=== PATIENT | female | born 1935 | race Caucasian/White ===

== ENCOUNTER 2018-08-01 08:42 | Emergency (ER) | payer MEDICARE ==
[~2018-08-01] VITALS: Ht 157.5 cm; Wt 49.0 kg
[2018-08-01] MEDS ORDERED: LOSA25TA27 PO (08:51)
[2018-08-01] MEDS ORDERED: LEVO75TA PO (08:51)
--- NOTE | 2018-08-01 09:06 | NUR ---
Dr Gregory at the bedside for re-eval.
[2018-08-01 09:17] VITALS: BP 129/77
== END 2018-08-01 09:18 | disposition home or self-care (01) ==
LOC: ER 08:42
DX: R22.41 Localized swelling, mass and lump, right lower limb (principal); Z79.899 Other long term (current) drug therapy
CPT/HCPCS: A4663

== ENCOUNTER 2018-08-20 14:13 | Emergency (ER) | payer MEDICARE ==
[~2018-08-20] VITALS: Ht 154.9 cm; Wt 49.0 kg
[~2018-08-20 14:13] MED LIST: LEVO75TA PO; LOSA25TA27 PO
--- NOTE | 2018-08-20 14:29 | NUR ---
FORTINO MEYERS AT BEDSIDE FOR MSE.
[2018-08-20 14:44] LABS: BASOPHILS % (AUTO) 0.4 % (0.0-2.0); EOSINOPHILS % (AUTO) 0.5 % (0.0-7.0); HEMOGLOBIN 13.2 g/dL (10.9-14.3); MEAN CORPUSCULAR HEMOGLOBIN 30.7 uug (24.7-32.8); MEAN CORPUSCULAR HGB CONC 33 g/dL (32.3-35.6); MEAN CORPUSCULAR VOLUME 92.7 fL (75.5-95.3); MONOCYTES # (AUTO) 0.7 K/uL (2.0-10.0); MONOCYTES % (AUTO) 8.4 % (0.0-11.0); NEUTROPHILS # (AUTO) 6.2 K/uL (1.8-8.9); NEUTROPHILS % (AUTO) 77.7 % (38.5-71.5); PLATELET COUNT (AUTO) 257 K/uL (179-408); RED BLOOD CELL COUNT(AUTO) 4.31 MIL/uL (3.63-4.92)
[2018-08-20] MEDS: IV NORMAL SALINE 1000 ML BAG IV ONE (14:46)
[2018-08-20 14:52] LABS: CARBON DIOXIDE 28 mmol/L (21-32); CHLORIDE 103 mmol/L (98-107); CREATININE 0.8 mg/dL (0.6-1.3); GLUCOSE 125 mg/dL (74-106); POTASSIUM 3.6 mmol/L (3.5-5.1); UREA NITROGEN, BLOOD 13 mg/dL (7-18)
[2018-08-20 14:57] LABS: ALANINE AMINOTRANSFERASE 23 U/L (14-59); ALKALINE PHOSPHATASE 69 U/L (50-136); ASPARTATE AMINOTRANSFERASE 18 U/L (15-37); BILIRUBIN,DIRECT 0.1 mg/dL (0.0-0.2); BILIRUBIN,TOTAL 0.4 mg/dL (0.2-1.0); LIPASE 139 U/L (73-393); TOTAL PROTEIN, SERUM 7.2 g/dL (6.4-8.2)
--- NOTE | 2018-08-20 15:38 | NUR ---
Patient discharged to home in stable conditon. Written and verbal after care instructions given. Patient verbalizes understanding of instructions. ALL BELONGINGS W/ PT. PT SELF-AMBULATED W/O DIFFICULTY. 20G IV ACCESS IN LFA REMOVED PRIOR TO D/C - INNER CANNULA INTACT.
[2018-08-20 15:39] VITALS: BP 138/72
== END 2018-08-20 15:44 | disposition home or self-care (01) ==
LOC: ER 14:13
DX: R19.7 Diarrhea, unspecified (principal); R53.1 Weakness; Z79.899 Other long term (current) drug therapy
CPT/HCPCS: 36415; 83690; 85025; A4663; J7030

== ENCOUNTER 2018-09-14 10:07 | Emergency (ER) | payer MEDICARE ==
[~2018-09-14] VITALS: Ht 154.9 cm; Wt 49.4 kg
--- NOTE | 2018-09-14 10:22 | NUR ---
FORTINO MEYERS AT BEDSIDE FOR MSE.
[2018-09-14] MEDS ORDERED: SULFAMETH/TRIMETH 800/160 MG TABLET PO ONE (10:45)
[2018-09-14] MEDS ORDERED: SULFAMETH/TRIMETH 800/160 MG TABLET ONE (10:47)
[2018-09-14 10:52] VITALS: BP 131/71
--- NOTE | 2018-09-14 10:52 | NUR ---
Patient discharged to home in stable conditon. Written and verbal after care instructions given. Patient verbalizes understanding of instructions. ALL BELONGINGS W/ PT. PT SELF-AMBULATED W/O DIFFICULTY.
== END 2018-09-14 10:53 | disposition home or self-care (01) ==
LOC: ER 10:07
DX: S61.232A Puncture wound without foreign body of right middle finger without damage to nail, initial encounter (principal); L08.9 Local infection of the skin and subcutaneous tissue, unspecified; B95.8 Unspecified staphylococcus as the cause of diseases classified elsewhere; Z79.899 Other long term (current) drug therapy; W60.XXXA Contact with nonvenomous plant thorns and spines and sharp leaves, initial encounter; Y93.89 Activity, other specified; Y92.89 Other specified places as the place of occurrence of the external cause; Y99.8 Other external cause status
CPT/HCPCS: 73130; A4663

== ENCOUNTER 2018-09-17 17:40 | Emergency (ER) | payer MEDICARE ==
[~2018-09-17] VITALS: Ht 154.9 cm; Wt 49.4 kg
--- NOTE | 2018-09-17 18:50 | NUR ---
Patient discharged to home in stable conditon. Written and verbal after care instructions given. Patient verbalizes understanding of instructions.
[2018-09-17 18:51] VITALS: BP 144/73
== END 2018-09-17 18:52 | disposition home or self-care (01) ==
LOC: ER 17:42
DX: L81.9 Disorder of pigmentation, unspecified (principal); Z79.899 Other long term (current) drug therapy
CPT/HCPCS: A4663

== ENCOUNTER 2022-02-25 14:10 | Inpatient (IN) | payer MEDICARE ==
[~2022-02-25] VITALS: Ht 154.9 cm; Wt 49.4 kg
--- NOTE | 2022-02-25 14:28 | NUR ---
EKG done by KASH Lockett.
--- NOTE | 2022-02-25 14:35 | NUR ---
[email or web address], medical screening exam in progress
[2022-02-25] MEDS ORDERED: IV NORMAL SALINE 500 ML BAG IV ONE (15:00)
[2022-02-25] MEDS ORDERED: ACETAMINOPHEN ES 500 MG TABLET PO ONE (15:00)
[2022-02-25] MEDS ORDERED: ACETAMINOPHEN ES 500 MG TABLET ONE (15:07)
--- NOTE | 2022-02-25 15:23 | NUR ---
"Plan to admit" per Dr Taylor. Er registration/admitting staff Janine and Jazmine notified.
[2022-02-25 15:26] LABS: HEMATOCRIT 36.8 % (31.2-41.9); MEAN CORPUSCULAR HEMOGLOBIN 31.1 uug (24.7-32.8); MEAN CORPUSCULAR VOLUME 93.5 fL (75.5-95.3); PLATELET COUNT (AUTO) 258 K/uL (179-408)
--- NOTE | 2022-02-25 15:33 | NUR ---
Patient ambulated to the bathroom near the nurses' station with her own walker.
[2022-02-25 15:51] LABS: *BILIRUBIN,URIN NEGATIVE (NEGATIVE); *BLOOD, URINE NEGATIVE (NEGATIVE); *CLARITY,URINE CLEAR (CLEAR); *COLOR,URINE YELLOW (YELLOW); *KETONES,URINE NEGATIVE (NEGATIVE); *UROBILINOGEN,URINE 0.2 E.U./dl (NORMAL); LEUKOCYTE ESTERASE ,URINE NEGATIVE (NEGATIVE); NITRITE, URINE NEGATIVE (NEGATIVE); PH,URINE 7.5 (5.0-8.0); UGLUCOSE NEGATIVE (NEGATIVE)
[2022-02-25 15:56] LABS: ALANINE AMINOTRANSFERASE 21 U/L (14-59); ALKALINE PHOSPHATASE 67 U/L (50-136); ASPARTATE AMINOTRANSFERASE 11 U/L (15-37); BILIRUBIN,DIRECT 0.1 mg/dL (0.0-0.2); BILIRUBIN,TOTAL 0.3 mg/dL (0.2-1.0); CARBON DIOXIDE 26 mmol/L (21-32); CHLORIDE 102 mmol/L (98-107); CREATININE 0.6 mg/dL (0.6-1.3); GLUCOSE 115 mg/dL (74-106); POTASSIUM 3.5 mmol/L (3.5-5.1); TOTAL PROTEIN, SERUM 6.2 g/dL (6.4-8.2); UREA NITROGEN, BLOOD 18 mg/dL (7-18)
--- NOTE | 2022-02-25 17:15 | NUR ---
Patient is resting comfortably on gurney. Patient denies chest pains. Son is at bedside.
[2022-02-25] MEDS ORDERED: IV NS 1000 ML 1,000 ML IV PRN (18:30)
[2022-02-25] MEDS ORDERED: ACETAMINOPHEN 325 MG TABLET PO PRN (18:30)
[2022-02-25] MEDS ORDERED: ONDANSETRON 4 MG/2 ML VIAL IV PRN (18:30)
[2022-02-25] MEDS ORDERED: ENOXAPARIN SODIUM 40 MG/0.4 ML DISP.SYRIN SQ SCH ×2 (18:30→21:00)
[2022-02-25] MEDS ORDERED: ASPIRIN 81 MG TAB.CHEW PO ONE (18:30)
[2022-02-25] MEDS ORDERED: REMEDY ESSENTIAL ZINC PASTE 113 GM TP PRN (18:30)
--- NOTE | 2022-02-25 18:32 | NUR ---
Patient ate dinner tray with good appetite. Patient is still undecided if she wants to be admitted.
[2022-02-25] MEDS ORDERED: ENOXAPARIN SODIUM 40 MG/0.4 ML DISP.SYRIN SQ ONE (18:49)
--- NOTE | 2022-02-25 19:01 | NUR ---
Note lianna in EDM - 02/25/22 at 1932 by SONAM Patient refused subQ Lovenox. "I want to see the cardiologisy first." per patient's verbalization. ER MDs notified.
--- NOTE | 2022-02-25 19:01 | NUR ---
Patient refused subQ Lovenox. "I want to see the electrician sound first." per patient's verbalization. ER MDs notified.
--- NOTE | 2022-02-25 19:04 | NUR ---
Nursing SBAR given to KASH Spencer. Patient is waiting for an available telemetry nurse & bed in 3rd floor at this time.
--- NOTE | 2022-02-25 19:04 | NUR ---
Daly dsouza in ED - 02/25/22 at 1921 by SONAM Nursing SBAR given to KASH Spencer. Patient is waiting for an available telemetry nurse & bed in [address] [place] [address] at this time.
[2022-02-25] MEDS ORDERED: AZITHROMYCIN IV 500 MG in IV DEXTROSE 5% 250 ML IV SCH (21:00)
[2022-02-25] MEDS ORDERED: CEFTRIAXONE 1 G in IV DEXTROSE 5% 50 ML IV SCH (21:00)
--- NOTE | 2022-02-25 22:35 | NUR ---
Report given to Ishan HEWITT Tele.
[2022-02-25] MEDS ORDERED: HYDR-4075 PO (23:17)
[2022-02-25] MEDS ORDERED: AZITHROMYCIN 500MG/ D5W 250ML IVPB **ER PYXIS ONLY IV ONE (23:26)
[2022-02-25] MEDS ORDERED: CEFTRIAXONE /D5W 50ML IVPB **ER PYXIS IV ONE (23:26)
[2022-02-25] MEDS: LOSARTAN POTASSIUM 50 MG TABLET PO SCH (23:29)
[2022-02-26] MEDS ORDERED: LEVOTHYROXINE SODIUM 88 MCG TABLET PO SCH (07:00)
[2022-02-26] MEDS ORDERED: LEVOTHYROXINE SODIUM 75 MCG TABLET PO SCH (07:00)
[2022-02-26 07:28] LABS: HEMATOCRIT 33.8 % (31.2-41.9); MEAN CORPUSCULAR HEMOGLOBIN 31.5 uug (24.7-32.8); MEAN CORPUSCULAR VOLUME 92.3 fL (75.5-95.3); PLATELET COUNT (AUTO) 232 K/uL (179-408)
[2022-02-26 07:41] LABS: BILIRUBIN,TOTAL 0.4 mg/dL (0.2-1.0); CREATININE 0.6 mg/dL (0.6-1.3); PHOSPHOROUS 3.5 mg/dL (2.5-4.9); POTASSIUM 3.9 mmol/L (3.5-5.1); TOTAL PROTEIN, SERUM 5.9 g/dL (6.4-8.2)
--- NOTE | 2022-02-26 08:00 | NUR ---
awake alert and oriented x3 no ss of pain or distress, son at bedside. seen by dr lopez for cardiac follow-up see notes sr on monitor
[2022-02-26] MEDS: LOSARTAN POTASSIUM 50 MG TABLET PO SCH (08:58)
[2022-02-26] MEDS ORDERED: LOSARTAN POTASSIUM 25 MG TABLET PO SCH (09:00)
[2022-02-26] MEDS ORDERED: METOPROLOL TARTRATE 25 MG TABLET PO SCH (09:00)
--- NOTE | 2022-02-26 11:00 | NUR ---
seen by emre for follow-up see notes
[2022-02-26 12:00] VITALS: BP 105/63
[2022-02-26] MEDS ORDERED: AMOX-430 PO (13:13)
--- NOTE | 2022-02-26 15:20 | NUR ---
discharged home stable with son via private car. discharge medication and follow-up instruction given
== END 2022-02-26 15:25 | disposition home or self-care (01) | DRG 194 ==
LOC: ER 14:12 → TRANSITION 19:15 → TELE3 22:27
PROVIDERS: ADMIT Nurse Practitioner Acute Care; ATTEND Internal Medicine
DX: J15.9 Unspecified bacterial pneumonia (principal); E44.1 Mild protein-calorie malnutrition; I45.2 Bifascicular block; R07.9 Chest pain, unspecified; E03.9 Hypothyroidism, unspecified; E78.5 Hyperlipidemia, unspecified; E88.09 Other disorders of plasma-protein metabolism, not elsewhere classified; I10 Essential (primary) hypertension; Z86.12 Personal history of poliomyelitis; Z86.16 Personal history of COVID-19; R00.1 Bradycardia, unspecified; I35.1 Nonrheumatic aortic (valve) insufficiency; Z68.20 Body mass index [BMI] 20.0-20.9, adult
CPT/HCPCS: 36415; 70450; 71045; 83735; 84100; 84484; 85025; 85730; 87400; 93005; 93307; A4663; A9150; G0378; J0456; J0696; J1650; J7040; J7050

== ENCOUNTER 2022-11-01 15:09 | Emergency (ER) | payer MEDICARE ==
[~2022-11-01] VITALS: Ht 154.9 cm; Wt 52.2 kg
[~2022-11-01 15:09] MED LIST changes: +AMOX-430 PO; +HYDR-4075 PO
[2022-11-01 15:40] VITALS: O2SAT 95
== END 2022-11-01 16:01 | disposition home or self-care (01) ==
LOC: ER 15:12
DX: H11.31 Conjunctival hemorrhage, right eye (principal); E03.9 Hypothyroidism, unspecified; Z79.2 Long term (current) use of antibiotics; Z79.899 Other long term (current) drug therapy
CPT/HCPCS: A4663

== ENCOUNTER 2024-08-09 11:02 | Emergency (ER) | payer MEDICARE ==
[~2024-08-09] VITALS: Ht 157.5 cm; Wt 55.3 kg
[2024-08-09 12:22] LABS: BASOPHILS % (AUTO) 0.4 % (0.0-2.0); DIFFERENTIAL COMMENT 1; EOSINOPHILS % (AUTO) 0.5 % (0.0-7.0); HEMATOCRIT 38.6 % (31.2-41.9); HEMOGLOBIN 12.9 g/dL (10.9-14.3); LYMPHOCYTES # (AUTO) 0.8 K/uL (0.8-4.8); LYMPHOCYTES % (AUTO) 14.1 % (20.5-51.5); MEAN CORPUSCULAR HEMOGLOBIN 31.2 uug (24.7-32.8); MEAN CORPUSCULAR HGB CONC 33 g/dL (32.3-35.6); MEAN CORPUSCULAR VOLUME 93.4 fL (75.5-95.3); MONOCYTES # (AUTO) 0.7 K/uL (0.1-1.30); MONOCYTES % (AUTO) 11.6 % (0.0-11.0); NEUTROPHILS # (AUTO) 4.3 K/uL (1.8-8.9); NEUTROPHILS % (AUTO) 73.4 % (38.5-71.5); PLATELET COUNT (AUTO) 243 K/uL (179-408); RED BLOOD CELL COUNT(AUTO) 4.13 MIL/uL (3.63-4.92); RED CELL DISTRIBUTION WIDTH 14.2 % (12.3-17.7); WHITE BLOOD COUNT (AUTO) 5.9 K/uL (3.8-11.8)
[2024-08-09 12:27] LABS: CALCIUM 9.1 mg/dL (8.5-10.1); CARBON DIOXIDE 26 mmol/L (21-32); CHLORIDE 102 mmol/L (98-107); CREATININE 0.8 mg/dL (0.6-1.3); GLUCOSE 104 mg/dL (74-106); POTASSIUM 3.9 mmol/L (3.5-5.1); SODIUM SERUM 136 mmol/L (136-145); UREA NITROGEN, BLOOD 29 mg/dL (7-18)
[2024-08-09 14:38] VITALS: BP 139/93; TEMP 97.8; O2SAT 97
== END 2024-08-09 14:35 | disposition home or self-care (01) ==
LOC: ER 11:05
DX: M79.605 Pain in left leg (principal); E03.9 Hypothyroidism, unspecified; E78.5 Hyperlipidemia, unspecified; I10 Essential (primary) hypertension; Z86.16 Personal history of COVID-19; Z88.7 Allergy status to serum and vaccine; Z86.79 Personal history of other diseases of the circulatory system; Z87.39 Personal history of other diseases of the musculoskeletal system and connective tissue; Z87.2 Personal history of diseases of the skin and subcutaneous tissue
CPT/HCPCS: 36415; 85025; 85730; A4606; A4663

== ENCOUNTER 2024-08-30 10:20 | Inpatient (IN) | payer MEDICARE ==
[~2024-08-30] VITALS: Ht 157.5 cm; Wt 60.9 kg
[2024-08-30 11:02] LABS: PLATELET COUNT (AUTO) 247 K/uL (179-408); RED BLOOD CELL COUNT(AUTO) 4.17 MIL/uL (3.63-4.92); RED CELL DISTRIBUTION WIDTH 14.2 % (12.3-17.7); WHITE BLOOD COUNT (AUTO) 5.3 K/uL (3.8-11.8)
[2024-08-30 11:11] LABS: ETHANOL < 3 MG/DL (0-10)
[2024-08-30 11:35] LABS: LACTIC ACID 2.2 mmol/L (0.4-2.0)
[2024-08-30 11:38] LABS: CREATININE 1.0 mg/dL (0.6-1.3); SODIUM SERUM 141 mmol/L (136-145); UREA NITROGEN, BLOOD 27 mg/dL (7-18)
[2024-08-30 11:43] LABS: ASPARTATE AMINOTRANSFERASE 26 U/L (15-37); TOTAL PROTEIN, SERUM 7.3 g/dL (6.4-8.2)
[2024-08-30] MEDS ORDERED: CEFTRIAXONE /D5W 50ML IVPB **ER PYXIS IV ONE (12:01)
[2024-08-30] MEDS: IV NORMAL SALINE 1000 ML BAG IV ONE (12:05)
[2024-08-30] MEDS: CEFTRIAXONE 1 G in IV DEXTROSE 5% 50 ML IV ONE (12:05)
[2024-08-30 13:21] LABS: *BILIRUBIN,URIN NEGATIVE (NEGATIVE); *BLOOD, URINE NEGATIVE (NEGATIVE); *CLARITY,URINE CLEAR (CLEAR); *KETONES,URINE NEGATIVE (NEGATIVE); *PROTEIN,URINE NEGATIVE (NEGATIVE); *UROBILINOGEN,URINE 0.2 E.U./dl (NORMAL); LEUKOCYTE ESTERASE ,URINE NEGATIVE (NEGATIVE); NITRITE, URINE NEGATIVE (NEGATIVE); UGLUCOSE NEGATIVE (NEGATIVE)
[2024-08-30 13:23] LABS: *COLOR,URINE LIGHT YELLOW (YELLOW)
[2024-08-30] MEDS ORDERED: CALC-494 PO (13:31)
[2024-08-30] MEDS ORDERED: VIT1TABL66 PO (13:31)
[2024-08-30] MEDS ORDERED: FAMO10TA41 PO (13:31)
[2024-08-30] MEDS ORDERED: ROSU10TA2 PO (13:31)
[2024-08-30] MEDS ORDERED: CHOL100045 PO (13:31)
[2024-08-30 13:43] LABS: *AMPHETAMINE, URINE NEGATIVE (NEGATIVE); *BARBITURATE, URINE NEGATIVE (NEGATIVE); *BENZODIAZEPINE, URINE NEGATIVE (NEGATIVE); *CANNABINOID, URINE NEGATIVE (NEGATIVE); *COCCAINE, URINE NEGATIVE (NEGATIVE); *OPIATE, URINE NEGATIVE (NEGATIVE); *PHENCYCLIDINE SCREEN,URINE NEGATIVE (NEGATIVE); FENTANYL, URINE NEGATIVE (NEGATIVE)
[2024-08-30] MEDS ORDERED: CHOL-35 PO (13:54)
[2024-08-30 14:14] VITALS: BP_SYST 152; BP_SYST 162; BP_DIAS 53; BP_DIAS 70; TEMP 98.6; O2SAT 95
[2024-08-30] MEDS ORDERED: ONDANSETRON 4 MG/2 ML VIAL IV PRN (15:30)
[2024-08-30] MEDS ORDERED: TEMAZEPAM 15 MG CAPSULE PO PRN (15:30)
[2024-08-30] MEDS ORDERED: MAGNESIUM HYDROXIDE 30 ML LIQUID UDC PO PRN (15:30)
[2024-08-30 17:42] VITALS: BP 144/63
[2024-08-30] MEDS: CALCIUM CARBONATE 500 MG TABLET PO SCH (17:48)
[2024-08-30] MEDS: LOSARTAN POTASSIUM 25 MG TABLET PO SCH (17:49)
[2024-08-30 19:48] VITALS: BP 124/54; TEMP 98.5; O2SAT 95
[2024-08-30] MEDS: ATORVASTATIN 20 MG TABLET PO SCH (20:43)
[2024-08-30] MEDS: DOCUSATE SODIUM 100 MG CAPSULE PO SCH (20:44)
[2024-08-31] MEDS: ACETAMINOPHEN 325 MG TABLET PO PRN (00:54)
[2024-08-31 00:59] VITALS: BP 103/49; TEMP 98.1; O2SAT 93
[2024-08-31 05:14] VITALS: BP 102/45; TEMP 98.2; O2SAT 94
[2024-08-31] MEDS: LEVOTHYROXINE SODIUM 75 MCG TABLET PO SCH (06:07)
[2024-08-31] MEDS: PANTOPRAZOLE SODIUM 40 MG TABLET.DR PO SCH (06:07)
[2024-08-31 07:21] LABS: PLATELET COUNT (AUTO) 221 K/uL (179-408); RED BLOOD CELL COUNT(AUTO) 3.71 MIL/uL (3.63-4.92); RED CELL DISTRIBUTION WIDTH 14.0 % (12.3-17.7); WHITE BLOOD COUNT (AUTO) 5.7 K/uL (3.8-11.8)
[2024-08-31 07:36] VITALS: BP 105/52; TEMP 97.5; O2SAT 95
[2024-08-31 08:22] LABS: ASPARTATE AMINOTRANSFERASE 14 U/L (15-37); CREATININE 0.6 mg/dL (0.6-1.3); SODIUM SERUM 139 mmol/L (136-145); TOTAL PROTEIN, SERUM 5.5 g/dL (6.4-8.2); UREA NITROGEN, BLOOD 18 mg/dL (7-18)
[2024-08-31] MEDS: CHOLECALCIFEROL 1,000 UNIT TABLET PO SCH (08:41)
[2024-08-31] MEDS ORDERED: TEMAZEPAM 7.5 MG CAPSULE PO PRN (11:00)
[2024-08-31 11:36] VITALS: BP 112/49; TEMP 98.1; O2SAT 94
[2024-08-31 15:11] VITALS: BP 109/42; TEMP 98.4; O2SAT 94
[2024-08-31] MEDS: ENSURE WITH FIBER 237 ML LIQUID (CHOCOLATE) PO SCH (17:00)
[2024-08-31 19:00] VITALS: BP 121/48; TEMP 98.5; O2SAT 95
[2024-09-01 06:00] VITALS: BP 127/49; TEMP 98.7; O2SAT 95
[2024-09-01 09:30] VITALS: BP 129/60; O2SAT 97
[2024-09-01 11:38] VITALS: BP 140/65; TEMP 97.8; O2SAT 96
[2024-09-01] MEDS ORDERED: LIDOCAINE 2% (GLYDO= UROJET) 10 ML JELLY MM ONE (13:30)
[2024-09-01] MEDS ORDERED: LIDOCAINE 2% (GLYDO= UROJET) 10 ML JELLY MM PRN (13:45)
[2024-09-01 15:57] VITALS: BP 110/66; TEMP 98; O2SAT 95
[2024-09-01 19:00] VITALS: BP 115/63; TEMP 98.5; O2SAT 94
[2024-09-02 06:00] VITALS: BP 116/78; TEMP 98; O2SAT 95
[2024-09-02 07:24] LABS: PLATELET COUNT (AUTO) 217 K/uL (179-408); RED BLOOD CELL COUNT(AUTO) 3.81 MIL/uL (3.63-4.92); RED CELL DISTRIBUTION WIDTH 13.9 % (12.3-17.7); WHITE BLOOD COUNT (AUTO) 7.6 K/uL (3.8-11.8)
[2024-09-02 07:48] LABS: CREATININE 0.6 mg/dL (0.6-1.3); SODIUM SERUM 140 mmol/L (136-145); UREA NITROGEN, BLOOD 25 mg/dL (7-18)
[2024-09-02 11:32] VITALS: BP 116/50; TEMP 98; O2SAT 94
[2024-09-02] MEDS ORDERED: AMOX-427 PO (12:59)
== END 2024-09-02 15:20 | disposition home or self-care (01) | DRG 150 ==
LOC: ER 10:20 → TELE3 13:26 → MEDSURG3 08-31 15:48
PROVIDERS: ADMIT Internal Medicine; ATTEND Internal Medicine
PROC: 2Y41X5Z Packing of Nasal Region using Packing Material (ICD-10-PCS; principal; 2024-09-01)
DX: R04.0 Epistaxis (principal); N17.0 Acute kidney failure with tubular necrosis; I45.2 Bifascicular block; G96.08 Other cranial cerebrospinal fluid leak; E87.20 Acidosis, unspecified; R53.1 Weakness; R62.7 Adult failure to thrive; E78.5 Hyperlipidemia, unspecified; Z90.710 Acquired absence of both cervix and uterus; Z86.16 Personal history of COVID-19; Z86.12 Personal history of poliomyelitis; M50.322 Other cervical disc degeneration at C5-C6 level; I83.93 Asymptomatic varicose veins of bilateral lower extremities; E89.2 Postprocedural hypoparathyroidism; Z79.899 Other long term (current) drug therapy; E89.0 Postprocedural hypothyroidism; Z79.890 Hormone replacement therapy; I73.00 Raynaud's syndrome without gangrene; I10 Essential (primary) hypertension
CPT/HCPCS: 36415; 70450; 71045; 72125; 83605; 83735; 84100; 84443; 84484; 85025; 85730; 87040; 87086; A4606; A4663; C1758; G0378; G0480; J0696; J7040